=== PATIENT | male | born 1975 | race Two or more races ===

== ENCOUNTER 2020-06-27 22:44 | Emergency (ER) | payer OTHER ==
[~2020-06-27] VITALS: Ht 167.6 cm; Wt 72.1 kg
[~2020-06-27 22:44] MED LIST: RELAFEN500 MG PO; [UNRECOGNIZED DRUG - OTHER]
[2020-06-28] MEDS ORDERED: KETO10TA2 PO (05:09)
== END 2020-06-28 05:22 ==
LOC: ER 22:44
DX: M94.0 Chondrocostal junction syndrome [Tietze] (principal)

== ENCOUNTER 2020-09-19 15:49 | Emergency (ER) | payer OTHER ==
[~2020-09-19] VITALS: Ht 167.6 cm; Wt 89.8 kg
[~2020-09-19 15:49] MED LIST changes: +KETO10TA2 PO
[2020-09-19] MEDS ORDERED: TAMS0.4C PO (19:22)
[2020-09-19] MEDS ORDERED: SURFAK240 M1 PO (19:27)
[2020-09-19] MEDS ORDERED: TRIAMCINOLONE AC5 GM DT (19:27)
== END 2020-09-19 19:40 | disposition home or self-care (01) ==
LOC: ER 15:49
DX: M54.5 Low back pain (principal); N31.8 Other neuromuscular dysfunction of bladder; N39.0 Urinary tract infection, site not specified

== ENCOUNTER 2023-02-14 21:09 | Emergency (ER) | payer OTHER ==
[~2023-02-14] VITALS: Ht 167.6 cm; Wt 76.2 kg
[~2023-02-14 21:09] MED LIST changes: +SURFAK240 M1 PO; +TAMS0.4C PO; +TRIAMCINOLONE AC5 GM DT
== END 2023-02-15 01:52 | disposition home or self-care (01) ==
LOC: ER 21:09
DX: R00.2 Palpitations (principal)

== ENCOUNTER 2025-01-09 16:51 | Emergency (ER) | payer OTHER ==
[~2025-01-09] VITALS: Ht 167.6 cm; Wt 73.5 kg
[2025-01-09] MEDS ORDERED: ACID REDUCER20 M1 (17:00)
[2025-01-09] MEDS ORDERED: KETOROLAC TROMETHAMINE 30 MG VIAL IM ONE (18:00)
[2025-01-09] MEDS ORDERED: KETOROLAC TROMETHAMINE 30 MG VIAL ONE (18:02)
== END 2025-01-09 19:50 | disposition home or self-care (01) ==
LOC: ER 16:51
DX: M79.644 Pain in right finger(s) (principal); N40.0 Benign prostatic hyperplasia without lower urinary tract symptoms